=== PATIENT | female | born 1975 | race Caucasian/White ===

== ENCOUNTER 2022-06-18 13:57 | Observation (INO) | payer MEDICAID, SELFPAY ==
[2022-06-18 13:58] VITALS: BP 175/107; PULSE 72; RESP 15; TEMP 36.2; O2SAT 98; BMI 18.9
--- NOTE | 2022-06-18 14:55 | EDS_ITS ---
HPI History of Present Illness Chief Complaint: Substance Abuse Informant: patient Narrative Narrative: 47-year-old female is requesting detox from opiates. She states that she has been using heroin or fentanyl for at least a month. She had previously detoxed and was clean. She states that she does not want to live this lifestyle anymore. She notes pain along the left mandible and into her jaw with some swelling noting that she has sudden severe decayed teeth. Patient is very vague in her answers. She denies any pending legal issues PFSH PFS Medical History Aggression Asthma Bipolar 1 disorder Diarrhea GERD (gastroesophageal reflux disease) Hypertension Opiate addiction Pancreatitis Smoker Home Medications albuterol sulfate 90 mcg/actuation aerosol inhaler (ProAir HFA) 2 puff inhalation PRN PRN sob 06/18/22 [History Last Taken 06/18/22] atenolol 25 mg tablet 25 mg PO DAILY bp 06/18/22 [History Last Taken 06/18/22] buprenorphine HCl 8 mg sublingual tablet 8 mg sublingual BID Check with primary doctor 06/18/22 [History Last Taken 06/16/22] carbamazepine 100 mg/5 mL oral suspension 100 mg PO BID mood 06/18/22 [History Last Taken 06/18/22] fluticasone fur. 200 mcg-umeclid 62.5 mcg-vilant 25 mcg inhalat.powder (Trelegy Ellipta) 1 inh inhalation BID SOB 06/18/22 [History Last Taken 06/18/22] ipratropium 0.5 mg-albuterol 3 mg (2.5 mg base)/3 mL nebulization soln 3 ml inhalation Q4H PRN PRN sob 06/18/22 [History Last Taken 06/17/22] tcaoql-[id number]-albijun 24,000-76,000-120,000 unit capsule,delayed rel (Creon) 3 cap PO TID stomach 06/18/22 [History Last Taken 06/17/22] lisinopril 10 mg-hydrochlorothiazide 12.5 mg tablet 1 tab PO DAILY bp 06/18/22 [History Last Taken 06/18/22] loperamide 2 mg capsule 2 mg PO TID diarrhea 06/18/22 [History Last Taken 06/18/22] meloxicam 15 mg tablet 15 mg PO DAILY pain 06/18/22 [History Last Taken 06/17/22] omeprazole 20 mg capsule,delayed release 20 mg PO DAILY gerd 06/18/22 [History Last Taken 06/18/22] ondansetron 8 mg disintegrating tablet 8 mg translingual Q8H PRN PRN Nausea 06/18/22 [History Last Taken 06/18/22] risperidone 0.5 mg tablet 0.5 mg PO QHS mood 06/18/22 [History Last Taken 06/17/22] Allergy/AdvReac Type Severity Reaction Status Date / Time codeine Allergy Anaphylaxis Verified 06/18/22 14:01 Penicillins [PCN] Allergy Anaphylaxis Verified 06/18/22 13:58 Sulfa (Sulfonamide Allergy PT UNSURE Verified 06/18/22 13:58 Antibiotics) OF REACTION Family History Other Hx of appendicitis Social History (Updated 06/18/22 @ 14:[address] Rosalino Dash DO) Smoking Status: Current every day smoker tobacco type: cigarettes substance use type: opiates EXAM Physical Exam Const Vital Signs: 06/18/22 13:58 Temperature 97.2 F L Temperature Source Temporal Pulse Rate 72 Respiratory Rate 15 Blood Pressure 175/107 H Blood Pressure Mean 129 Pulse Ox 98 Oxygen Delivery Method Room Air Positive well nourished and well developed General Appearance ED: well developed HEENT Reports normocephalic, head/scalp atraumatic and moist mucous membranes Eyes PERRL and EOMs intact bilaterally Neck no lymphadenopathy, supple and no JVD Resp normal respiratory effort and clear to auscultation bilaterally Cardio regular rate, regular rhythm and no murmurs GI normal to inspection, nondistended, normoactive bowel sounds and non-tender Palpation: soft Back/Spine no CVA tenderness and normal ROM Extremity normal to inspection General Extremety ED: Negative for edema General Extremity: Negative for edema Neuro oriented x3 and CN's II-XII intact bilaterally Sensorium / Orientation: alert Motor Exam: strength 5/5 throughout Psych mental status grossly normal Mood & Affect: tearful; Negative for depressed Skin no rashes or lesions noted and no wounds MDM MDM MDM Narrative Medical decision making narrative: Medical screening labs will be obtained and I will speak with the hospitalist regarding admission. Lab Data Attestation: I reviewed the patient's lab results. Labs: Laboratory Results - last 24 hr 06/18/22 06/18/22 15:00 15:00 WBC Cancelled Corrected WBC Cancelled RBC Cancelled Hgb Cancelled Hct Cancelled MCV Cancelled MCH Cancelled MCHC Cancelled RDW Std Deviation Cancelled RDW Coeff of Lux Cancelled Plt Count Cancelled MPV Cancelled Immature Gran % (Auto) Cancelled Neut % (Auto) Cancelled Lymph % (Auto) Cancelled [place] % (Auto) Cancelled Eos % (Auto) Cancelled Baso % (Auto) Cancelled Absolute Neuts (auto) Cancelled Absolute Lymphs (auto) Cancelled Total Counted Cancelled Neutrophils % (Manual) Cancelled Band Neutrophils % Cancelled Lymphocytes % (Manual) Cancelled Monocytes % (Manual) Cancelled Eosinophils % (Manual) Cancelled Basophils % (Manual) Cancelled Metamyelocytes % Cancelled Myelocytes % Cancelled Promyelocytes % Cancelled Blast Cells % Cancelled Plasma Cell % (Manual) Cancelled Other Cells % Cancelled Nucleated RBC % Cancelled Nucleated RBCs/100 WBC Cancelled Differential Comment Cancelled Diff Path Review Cancelled Hypersegmented Neuts Cancelled Atypical Lymphocytes Cancelled Reactive Lymphocytes Cancelled Smudge Cells Cancelled Toxic Granulation Cancelled Toxic Vacuolation Cancelled Dohle Bodies Cancelled Sirisha Rods Cancelled Platelet Estimate Cancelled Plt Morphology Comment Cancelled RBC Morphology Cancelled Polychromasia Cancelled Hypochromasia Cancelled Poikilocytosis Cancelled Basophilic Stippling Cancelled Anisocytosis Cancelled Microcytosis Cancelled Macrocytosis Cancelled Spherocytes Cancelled Sickle Cells Cancelled Target Cells Cancelled Tear Drop Cells Cancelled Ovalocytes Cancelled Stomatocytes Cancelled Gupta-[place] Bodies Cancelled [place] Cells Cancelled Bite Cells Cancelled Crenated Cell Cancelled Acanthocytes (Spur) Cancelled Rouleaux Cancelled Schistocytes Cancelled Estim Creat Clear Calc DOT COMPLIANCE SPECIALIST Globulin DOT COMPLIANCE SPECIALIST Albumin/Globulin Ratio DOT COMPLIANCE SPECIALIST Discharge Plan Dx/Rx/DC Orders Clinical Impression: Opiate withdrawal Disposition Disposition: Acute Care Hospital [facility]
[2022-06-18 15:15] VITALS: BP 170/101; PULSE 72; RESP 15; TEMP 36.2; O2SAT 98
[2022-06-18] MEDS: Clindamycin HCl 150 MG Capsule 300 MG PO ×3 (15:23→20:58)
[2022-06-18 15:25] VITALS: BMI 18.0
[2022-06-18 15:45] LABS: Alcohol, Blood (Medical)-Serum < 3.0 mg/dL; Internal QC Validated? YES +Cl - CLEAR BKGD; Pregnancy, Serum, hCG Quali. NEGATIVE Negative
[2022-06-18 16:23] LABS: Absolute Lymphocyte Count 2.21 X10^3/uL (0.83-4.51); Absolute Neutrophil Count 9.4 X10^3/uL (2.0-7.7); Basophil# 0.03 X10^3/uL; Basophil% 0.2 % (0-1); Eosinophils% 0.8 % (0-5); Hematocrit 46.2 % (37-47); Hemoglobin 14.9 g/dL (12.0-15.0); Lymphocyte # 2.21 X10^3/ul (0.83-4.51); Lymphocyte % 17.6 % (19-41); Mean Corp Hgb Conc 32.3 g/dL (32-36); Mean Corpuscular Hgb 29.7 pg (27.0-32.0); Mean Platelet Vol. 10.8 fl (6.2-12.0); Monocyte# 0.84 X10^3/uL; Monocyte% 6.7 % (0-10); NRBC Flagged by Analyzer 0 % (0-5); Neutrophil # 9.37 X10^3/uL (2.7-7.7); Neutrophil % 74.5 % (47-70); POSITIVE COUNT YES; Platelet Count 219 K/mm3 (150-450); RBC Distribution Width CV 12.7 % (11.6-14.6); RBC Distribution Width SD 42.7 fl (35.1-43.9); Red Blood Count 5.02 M/mm3 (4.2-5.4); White Blood Count 12.6 K/mm3 (4.4-11.0)
--- NOTE | 2022-06-18 16:35 | HP.PCM.HOS_ITS ---
HPI - General General Date of Admission: 06/18/22 Date of Service: 06/18/22 Chief Complaint: acute opioid withdrawal HPI Narrative MARIELENA TAMAYO, is a 47 F with a past medical history as outlined who was admitted through the ED for acute opioid withdrawal. Patient had been using heroin and fentanyl for at least a month and came in saying that she did not want to be using drugs anymore. She had previously detoxed previously during another admission for a lung problem. SHe has been clean for about 9 months until she relapsed a month ago. She denied any tremors, palpitations, increased sweating or abdominal pain. She also complained of pain along her left mandible radiating into her jaw with some swelling and admitted to having several decayed teeth. She said she saw a dentist and was asked to see an oral surgeon, but she hasnt done so yet. Vitals in the ED were blood pressure 170/101 with pulse rate of 72 respiratory rate of 15. She was saturating at 98% on room air. CBC and BMP were largely unremarkable apart from wbc of 12.6 and glucose of 138. Urine tox was positive for opiates, cocaine and cannabinoids and serum alcohol level was less than 3. She is being admitted to be managed for acute opioid withdrawal and infected dental caries [facility] Medical History Aggression Asthma Bipolar 1 disorder Diarrhea GERD (gastroesophageal reflux disease) Hypertension Opiate addiction Pancreatitis Smoker Home Medications albuterol sulfate 90 mcg/actuation aerosol inhaler (ProAir HFA) 2 puff inhalation PRN PRN sob 06/18/22 [History Last Taken 06/18/22] atenolol 25 mg tablet 25 mg PO DAILY bp 06/18/22 [History Last Taken 06/18/22] buprenorphine HCl 8 mg sublingual tablet 8 mg sublingual BID Check with primary doctor 06/18/22 [History Last Taken 06/16/22] carbamazepine 100 mg/5 mL oral suspension 100 mg PO BID mood 06/18/22 [History Last Taken 06/18/22] fluticasone fur. 200 mcg-umeclid 62.5 mcg-vilant 25 mcg inhalat.powder (Trelegy Ellipta) 1 inh inhalation BID SOB 06/18/22 [History Last Taken 06/18/22] ipratropium 0.5 mg-albuterol 3 mg (2.5 mg base)/3 mL nebulization soln 3 ml inhalation Q4H PRN PRN sob 06/18/22 [History Last Taken 06/17/22] jnobls-vuwsddec-sjjhjem 24,000-76,000-120,000 unit capsule,delayed rel (Creon) 3 cap PO TID stomach 06/18/22 [History Last Taken 06/17/22] lisinopril 10 mg-hydrochlorothiazide 12.5 mg tablet 1 tab PO DAILY bp 06/18/22 [History Last Taken 06/18/22] loperamide 2 mg capsule 2 mg PO TID diarrhea 06/18/22 [History Last Taken 06/18/22] meloxicam 15 mg tablet 15 mg PO DAILY pain 06/18/22 [History Last Taken 06/17/22] omeprazole 20 mg capsule,delayed release 20 mg PO DAILY gerd 06/18/22 [History Last Taken 06/18/22] ondansetron 8 mg disintegrating tablet 8 mg translingual Q8H PRN PRN Nausea 06/18/22 [History Last Taken 06/18/22] risperidone 0.5 mg tablet 0.5 mg PO QHS mood 06/18/22 [History Last Taken 06/17/22] Allergy/AdvReac Type Severity Reaction Status Date / Time codeine Allergy Anaphylaxis Verified 06/18/22 14:01 Penicillins [PCN] Allergy Anaphylaxis Verified 06/18/22 13:58 Sulfa (Sulfonamide Allergy PT UNSURE Verified 06/18/22 13:58 Antibiotics) OF REACTION Family History Other Hx of appendicitis Social History (Updated 06/18/22 @ 14:[address] Rosalino Dash DO) Smoking Status: Current every day smoker tobacco type: cigarettes substance use type: opiates ROS Constitutional Constitutional: Denies anorexia, chills, fatigue, fever(s), malaise or weakness Eyes Eyes: Denies change in vision ENT HEENT: Reports other Details: toothache and jaw pain ; Denies dysphagia Cardiovascular Cardiovascular: Denies chest pain, dyspnea on exertion, edema, lightheadedness, orthopnea, palpitations, paroxysmal nocturnal dyspnea, rapid heart rate or syncope Respiratory/Chest Respiratory/Chest: Denies cough, dyspnea, shortness of breath at rest or shortness of breath with exertion Gastrointestinal Gastrointestinal: Denies abdominal pain, constipation, diarrhea, nausea or vomi ting Genitourinary Genitourinary: Denies burning urination or dysuria Musculoskeletal Musculoskeletal: Denies arthralgias or joint pain Psychiatric Psychiatric: Denies anxiety or depression Endocrine Endocrinology: Denies change in body appearance Vital Signs Vital Signs Vital Signs: 06/18/22 13:58 06/18/22 15:15 Temperature 97.2 F L 97.2 F L Temperature Source Temporal Temporal Pulse Rate 72 72 Respiratory Rate 15 15 Blood Pressure 175/107 H 170/101 H Blood Pressure Mean 129 124 Pulse Ox 98 98 Oxygen Delivery Method Room Air Room Air Weight Weight: 135 lb 12.876 oz Body Mass Index (BMI) 18.9 Physical Exam Const alert, oriented x3 and no apparent distress General Appearance: cooperative HEENT normocephalic, head/scalp atraumatic, hearing grossly normal bilaterally and moist oral mucous membranes HEENT Narrative: very poor dental hygiene, with extensive dental caries Mouth: oral and palatal mucosa normal Eyes PERRL, EOMs intact bilaterally and conjunctivae normal Neck no lymphadenopathy and supple Resp normal respiratory effort, no retractions, no use of accessory muscles and clear to auscultation bilaterally Cardio regular rate, regular rhythm, S1 normal heart sound, S2 normal heart sound and no murmurs GI normal to inspection, nondistended, normoactive bowel sounds, soft to palpation, non-tender and non-distended Extremity normal to inspection, full ROM and no clubbing, cyanosis or edema Neuro oriented x3, CN's II-XII intact bilaterally, moves all extremities and no focal motor deficits Sensorium / Orientation: awake and alert Motor Exam: strength 5/5 throughout Psych affect normal Results Lab / Micro Data Result Diagrams: 06/18/22 16:07 06/18/22 15:00 Labs: Laboratory Results - last 24 hr 06/18/22 15:00: WBC Cancelled, Corrected WBC Cancelled, RBC Cancelled, Hgb Cancelled, Hct Cancelled, MCV Cancelled, MCH Cancelled, MCHC Cancelled, RDW Std Deviation Cancelled, RDW Coeff of Lux Cancelled, Plt Count Cancelled, MPV Cancelled, Immature Gran % (Auto) Cancelled, Neut % (Auto) Cancelled, Lymph % (Auto) Cancelled, [place] % (Auto) Cancelled, Eos % (Auto) Cancelled, Baso % (Auto) Cancelled, Absolute Neuts (auto) Cancelled, Absolute Lymphs (auto) Cancelled, Total Counted Cancelled, Neutrophils % (Manual) Cancelled, Band Neutrophils % Cancelled, Lymphocytes % (Manual) Cancelled, Monocytes % (Manual) Cancelled, Eosinophils % (Manual) Cancelled, Basophils % (Manual) Cancelled, Metamyelocytes % Cancelled, Myelocytes % Cancelled, Promyelocytes % Cancelled, Blast Cells % Cancelled, Plasma Cell % (Manual) Cancelled, Other Cells % Cancelled, Nucleated RBC % Cancelled, Nucleated RBCs/100 WBC Cancelled, Differential Comment Cancelled, Diff Path Review Cancelled, Hypersegmented Neuts Cancelled, Atypical Lymphocytes Cancelled, Reactive Lymphocytes Cancelled, Smudge Cells Cancelled, Toxic Granulation Cancelled, Toxic Vacuolation Cancelled, Dohle Bodies Cancelled, Sirisha Rods Cancelled, Platelet Estimate Cancelled, Plt Morphology Comment Cancelled, RBC Morphology Cancelled, Polychromasia Cancelled, Hypochromasia Cancelled, Poikilocytosis Cancelled, Basophilic Stippling Cancelled, Anisocytosis Cancelled, Microcytosis Cancelled, Macrocytosis Cancel led, Spherocytes Cancelled, Sickle Cells Cancelled, Target Cells Cancelled, Tear Drop Cells Cancelled, Ovalocytes Cancelled, Stomatocytes Cancelled, Gupta- [place] Bodies Cancelled, [place] Cells Cancelled, Bite Cells Cancelled, Crenated Cell Cancelled, Acanthocytes (Spur) Cancelled, Rouleaux Cancelled, Schistocytes Cancelled 06/18/22 15:00: Serum , Qual NEGATIVE 06/18/22 15:00: Estim Creat Clear Calc BUN PANNER, Globulin BUN PANNER, Albumin/Globulin Ratio BUN PANNER 06/18/22 15:00: Ethyl Alcohol < 3.0 Assessment & Plan Assessment/Plan (1) Opiate withdrawal: (2) Infected dental caries: PLAN: Plan #Acute opioid withdrawal * Admit to MedSurg * Urine tox pending. Has been through detox before. * Started on acute opioid withdrawal protocol with buprenorphine * Adjunctive meds for symptomatic relief. Monitor CINA score. * #Infected dental caries * patient complaining of right jaw pain and admits to dental caries * started on IV clindamycin, will continue * to follow up with dentist on outpatient basis for root canal as needed * #Hypertension: * poorly controlled. BP is elevated. * On lisinopril hydrochlorothiazide. * Also on atenolol. * #COPD: On Trelegy. Breathing treatments bronchodilators #Chronic pancreatitis: On Creon #Nicotine dependence: counseled to quit smoking. NIcotine patch 21mg daily DVT prophylaxis: Low risk. Encouraged to ambulate. Charges/Coding Visit Charges Inpatient E&M: 82188 Init Hosp L3
--- NOTE | 2022-06-18 16:36 | CM.ED ---
SW Note SW called [facility] Addiction Therapist and advised that patient presented to the ED for opiate withdrawl and patient is being admitted to [facility] program. Kirti ESCOBEDO
[2022-06-18 16:56] LABS: Differential Indicated SCAN CRITERIA MET
[2022-06-18 17:07] LABS: ALB/GLOB Ratio 1.2 RATIO (0.9-2.4); AST(SGOT) 33 U/L (15-37); Alanine Aminotransfer ALT/SGPT 39 U/L (13-56); Albumin, Serum 4.3 g/dL (3.2-5.0); Alkaline Phosphatase 77 U/L (45-117); Anion Gap 11 (5-15); BUN 15 mg/dL (7-18); BUN/Creat Ratio 20.1 RATIO (10-20); Calcium,Total 9.7 mg/dL (8.5-10.1); Chloride 102 mmol/L (98-107); Creatinine, Serum 0.75 mg/dL (0.55-1.02); EST Glomerular Filtration Rate 87 mL/min (>60); Est Glom Filt Rate - Afr Amer 106 mL/min (>60); Estimated Creatinine Clearance 86.41 ml/min; Globulin 3.5 g/dL (2.2-4.2); Glucose 138 mg/dL (74-106); Potassium 4.1 mmol/L (3.5-5.1); Protein, Total 7.8 g/dL (6.4-8.2); Sodium Level 140 mmol/L (136-145)
[2022-06-18] MEDS: cloNIDine HCl 0.1 MG Tablet PO (17:27)
[2022-06-18] MEDS: Gabapentin 300 MG Capsule PO (17:27)
[2022-06-18] MEDS: Buprenorphine HCl 2 MG TAB.SUBL SL (17:27)
[2022-06-18] MEDS: Methocarbamol 750 MG Tablet 1500 MG PO (17:27)
[2022-06-18] MEDS: Dicyclomine 10 MG Capsule 20 MG PO (17:27)
[2022-06-18 17:43] LABS: Differential Comment SCANNED
[2022-06-18 18:11] LABS: Amphetamine Urine VISTA NEGATIVE (<1000 ng/mL); Barbiturate Urine VISTA NEGATIVE (< 200 ng/mL); Benzodiazepine Urine VISTA NEGATIVE (< 200 ng/mL); Cocaine Urine VISTA POSITIVE (< 300 ng/mL); Ecstacy Urine VISTA NEGATIVE (< 500 ng/mL); Methadone Urine VISTA NEGATIVE (< 300 ng/mL); PCP Urine VISTA NEGATIVE (< 25 ng/mL); THC Urine VISTA POSITIVE (< 50 ng/mL); Vista UDS pH Range 7
[2022-06-18] MEDS: Creon 24,000 unit DR Capsule 3 CAP PO (20:58)
[2022-06-18] MEDS: traZODone 100 MG Tablet PO (20:58)
[2022-06-18] MEDS: hydrOXYzine PAM 25 MG Capsule 50 MG PO (20:58)
[2022-06-18] MEDS: Loperamide 2 MG Capsule PO (20:58)
[2022-06-18] MEDS: carBAMazepine 200 MG Tablet 100 MG PO (20:59)
[2022-06-18] MEDS: RisperiDONE 0.5 MG Tablet PO (20:59)
[2022-06-18 22:00] VITALS: BP 139/77; PULSE 94; RESP 16; TEMP 36.5; O2SAT 97
[2022-06-19] VITALS (9 sets, daily range): BP systolic 91–132; BP diastolic 52–81; PULSE 52–89; RESP 16–18; TEMP 36.4–36.9; O2SAT 95–100
[2022-06-19] MEDS: Buprenorphine HCl 2 MG TAB.SUBL SL ×3 (00:33→16:59)
[2022-06-19] MEDS: Loperamide 2 MG Capsule PO ×3 (05:24→21:35)
[2022-06-19] MEDS: Gabapentin 300 MG Capsule PO ×2 (05:24→14:35)
[2022-06-19] MEDS: Methocarbamol 750 MG Tablet 1500 MG PO ×2 (05:24→14:35)
[2022-06-19] MEDS: Budesonide Respules 0.5 MG/2 ML AMPUL.NEB. INHALATION ×2 (07:14→19:07)
[2022-06-19] MEDS: Ipratropium/Albuterol Sulfate 3 ML AMPUL.NEB INHALATION ×2 (07:14→19:07)
--- NOTE | 2022-06-19 07:34 | PN.HOSP_ITS ---
Subjective Subjective Patient is a 47-year-old female with opioid dependence admitted with acute opioid withdrawal Objective Data Objective Data Vital Signs: Vital Signs Temp Pulse Resp BP Pulse Ox O2 Del Method 97.6 F L 57 L 16 132/81 H 100 Room Air 06/19/22 05:00 06/19/22 07:15 06/19/22 07:15 06/19/22 05:00 06/19/22 05:00 06/19/22 05:00 Oxygen Delivery Method Room Air Weight: 60.328 kg Body Mass Index (BMI) 18.0 Lab / Micro Data Result Diagrams: 06/18/22 16:07 06/18/22 15:00 Labs: Laboratory Results - last 24 hr 06/18/22 15:00: WBC Cancelled, Corrected WBC Cancelled, RBC Cancelled, Hgb Cancelled, Hct Cancelled, MCV Cancelled, MCH Cancelled, MCHC Cancelled, RDW Std Deviation Cancelled, RDW Coeff of Lux Cancelled, Plt Count Cancelled, MPV Cancelled, Immature Gran % (Auto) Cancelled, Neut % (Auto) Cancelled, Lymph % (Auto) Cancelled, [place] % (Auto) Cancelled, Eos % (Auto) Cancelled, Baso % (Auto) Cancelled, Absolute Neuts (auto) Cancelled, Absolute Lymphs (auto) Cancelled, Total Counted Cancelled, Neutrophils % (Manual) Cancelled, Band Neutrophils % Cancelled, Lymphocytes % (Manual) Cancelled, Monocytes % (Manual) Cancelled, Eosinophils % (Manual) Cancelled, Basophils % (Manual) Cancelled, Metamyelocytes % Cancelled, Myelocytes % Cancelled, Promyelocytes % Cancelled, Blast Cells % Cancelled, Plasma Cell % (Manual) Cancelled, Other Cells % Cancelled, Nucleated RBC % Cancelled, Nucleated RBCs/100 WBC Cancelled, Differential Comment Cancelled, Diff Path Review Cancelled, Hypersegmented Neuts Cancelled, Atypical Lymphocytes Cancelled, Reactive Lymphocytes Cancelled, Smudge Cells Cancelled, Toxic Granulation Cancelled, Toxic Vacuolation Cancelled, Dohle Bodies Cancelled, Sirisha Rods Cancelled, Platelet Estimate Cancelled, Plt Morphology Comment Cancelled, RBC Morphology Cancelled, Polychromasia Cancelled, Hypochromasia Cancelled, Poikilocytosis Cancelled, Basophilic Stippling Cancelled, Anisocytosis Cancelled, Microcytosis Cancelled, Macrocytosis Cancelled, Spherocytes Cancelled, Sickle Cells Cancelled, Target Cells Cancelled, Tear Drop Cells Cancelled, Ovalocytes Cancelled, Stomatocytes Cancelled, Gupta-[place] Bodies Cancelled, [place] Cells Cancelled, Bite Cells Cancelled, Crenated Cell Cancelled, Acanthocytes (Spur) Cancelled, Rouleaux Cancelled, Schistocytes Cancelled 06/18/22 15:00: Serum , Qual NEGATIVE 06/18/22 15:00: Sodium 140, Potassium 4.1, Chloride 102, Carbon Dioxide 27.0, Anion Gap 11, BUN 15, Creatinine 0.75, Estim Creat Clear Calc 86.41, Est GFR (MDRD) Af Amer 106, Est GFR (MDRD) Non-Af 87, BUN/Creatinine Ratio 20.1 H, Glucose 138 H, Calcium 9.7, Total Bilirubin 0.50, AST 33, ALT 39, Alkaline Phosphatase 77, Total Protein 7.8, Albumin 4.3, Globulin 3.5, Albumin/Globulin Ratio 1.2 06/18/22 15:00: Ethyl Alcohol < 3.0 06/18/22 16:07: WBC 12.6 H, RBC 5.02, Hgb 14.9, Hct 46.2, MCV 92.0, MCH 29.7, MCHC 32.3, RDW Std Deviation 42.7, RDW Coeff of Lux 12.7, Plt Count 219, MPV 10.8, Immature Gran % (Auto) 0.200, Neut % (Auto) 74.5 H, Lymph % (Auto) 17.6 L, [place] % (Auto) 6.7, Eos % (Auto) 0.8, Baso % (Auto) 0.2, Absolute Neuts (auto) 9.4 H, Absolute Lymphs (auto) 2.21, Nucleated RBC % 0, Differential Comment SCANNED 06/18/22 17:15: Urine Opiates Screen POSITIVE H, Urine Methadone Screen NEGATIVE, Ur Barbiturates Screen NEGATIVE, Ur Phencyclidine Scrn NEGATIVE, Ur Amphetamines Screen NEGATIVE, MDMA (Ecstasy) Screen NEGATIVE, U Benzodiazepines Scrn NEGATIVE, Urine Cocaine Screen POSITIVE H, U Cannabinoids Screen POSITIVE H , Ur Drug Screen Comment Physical Exam Narrative GENERAL: cooperative HEENT: Atraumatic; normocephalic EYES; Anicteric, Normal Conjunctiva NECK; supple, normal thyroid, RESPIRATORY: Diminished to auscultation CARDIOVASCULAR: Regular S1 S2, GI: soft, normoactive bowel sounds, : No Renal angle tenderness; EXTREMITIES: No edema, no clubbing, MUSCULOSKELETAL: no muscle wasting NEURO: Awake; no lateralizing signs. SKIN: No Rash PSYCH; Flat affect Assessment & Plan Assessment/Plan (1) Opiate withdrawal: (2) Infected dental caries: PLAN: Plan Patient is a 47-year-old female with opioid dependence admitted with acute opioid withdrawal 1. Acute opiate withdrawal -patient has been admitted to regular nursing floor managed with buprenorphine taper in addition to adjunctive medications for symptom management 2. Infected dental carry ? Patient treated with clindamycin with plans for patient to follow-up with primary dentist once discharged 3. Essential hypertension ? Patient is on lisinopril, atenolol and hydrochlorothiazide blood pressure control not optimal did continue with home meds with plans to adjust doses if needed 4. COPD ? Did continue sinew with patient bronchodilator treatment 5. Chronic pancreatitis ? Patient is on Creon 6. Tobacco dependence - Counseled on cessation, offered nicotine patch for tobacco cravings 7. DVT prophylaxis Low risk did encourage early ambulation Charges/Coding Visit Charges Inpatient E&M: 39195 Subs Hosp L2
[2022-06-19] MEDS: Meloxicam 15 MG Tablet PO (08:50)
[2022-06-19] MEDS: Pantoprazole Sodium 20 MG Tablet PO (08:50)
[2022-06-19] MEDS: Lisinopril 10 MG Tablet PO (08:50)
[2022-06-19] MEDS: hydroCHLOROthiazide 12.5mg 12.5 MG PO (08:50)
[2022-06-19] MEDS: Dicyclomine 10 MG Capsule 20 MG PO ×2 (08:51→14:35)
[2022-06-19] MEDS: hydrOXYzine PAM 25 MG Capsule 50 MG PO ×2 (08:51→18:03)
[2022-06-19] MEDS: Atenolol 25 MG Tablet PO (08:51)
[2022-06-19] MEDS: cloNIDine HCl 0.1 MG Tablet PO (08:51)
[2022-06-19] MEDS: carBAMazepine 200 MG Tablet 100 MG PO ×2 (08:52→21:33)
[2022-06-19] MEDS: Clindamycin HCl 150 MG Capsule 300 MG PO ×4 (08:52→21:35)
[2022-06-19] MEDS: Creon 24,000 unit DR Capsule 3 CAP PO ×3 (08:52→17:00)
--- NOTE | 2022-06-19 11:18 | ADDICTION ---
This television writer met with PT to conduct ASAM, MSE, AUDIT, DUDIT assessments and to plan for d/c. PT A+Ox4 and participated actively. All assessments completed and placed in PT's chart. PT plans to f/u with [facility] for follow-up outpatient treatment services. PT did not indicate a need for transportation post d/c from [facility].
[2022-06-19] MEDS: Ondansetron 8 MG Tablet PO (14:35)
[2022-06-19] MEDS: Ensure Plus High Protein 120 ML LIQUID PO (17:02)
[2022-06-19] MEDS: RisperiDONE 0.5 MG Tablet PO (21:34)
[2022-06-20 01:45] VITALS: BP 115/65; PULSE 52; RESP 18; TEMP 36.6; O2SAT 99
[2022-06-20] MEDS: Buprenorphine HCl 2 MG TAB.SUBL SL ×3 (01:47→17:04)
[2022-06-20 05:58] VITALS: BP 102/67; PULSE 55; RESP 18; TEMP 36.7; O2SAT 100
[2022-06-20] MEDS: Loperamide 2 MG Capsule PO ×3 (06:01→21:10)
--- NOTE | 2022-06-20 07:27 | PCM.PN.HOSP ---
Subjective Subjective Patient seen still complaining of abdominal cramps. We will continue with current treatment regimen with the Subutex taper Objective Data Objective Data Vital Signs: Vital Signs Temp Pulse Resp BP Pulse Ox O2 Del Method 98.1 F 55 L 18 102/67 100 Room Air 06/20/22 05:58 06/20/22 05:58 06/20/22 05:58 06/20/22 05:58 06/20/22 05:58 06/20/22 05:58 Oxygen Delivery Method Room Air Weight: 60.328 kg Body Mass Index (BMI) 18.0 Medical Nutrition Assessment Dietitian: Malnutrition Criteria Met Start: 06/19/22 12:17 Freq: Status: Active Protocol: Document 06/19/22 12:18 RMA (Rec: 06/19/22 12:18 RMA [id number]) Nutrition Malnutrition Evidence of Malnutrition Exists Yes Malnutrition (severe): Chronic,Social/Behavioral/ Environmental Evidenced By Suboptimal Energy Intake ( Severe),Weight Loss (Severe), Physical Changes (Severe) Clinical Problem Chronic Disease or Condition Related Malnutrition Etiology Severe protein-calorie malnutrition in the context of social circumstance/chronic drug abuse related to inadequate oral intake Signs/Symptoms as evidenced by 12% weight loss x past 6-12 months, BMI 18.0, oral intake meeting less than 50% estimated nutrition needs x past 1-3 months, NFPE exhibits severe muscle/fat wasting in the face, clavicle, arms and legs Status Active Problem Recommendation Dietitian Recommendations/Changes Continue cardiac diet as ordered due to chronic pancreatitis/HTN. Will add 120ml ensure plus high protein TID w/ medpass. Will add 120 ml ensure clear TID w/ meals. Will try magic cup BID w/ lunch and dinner for tolerance . Lab / Micro Data Result Diagrams: 06/18/22 16:07 06/18/22 15:00 Physical Exam Narrative GENERAL: cooperative HEENT: Atraumatic; normocephalic EYES; Anicteric, Normal Conjunctiva NECK; supple, normal thyroid, RESPIRATORY: Diminished to auscultation CARDIOVASCULAR: Regular S1 S2, GI: soft, normoactive bowel sounds, : No Renal angle tenderness; EXTREMITIES: No edema, no clubbing, MUSCULOSKELETAL: no muscle wasting NEURO: Awake; no lateralizing signs. SKIN: No Rash PSYCH; Flat affect Assessment & Plan Assessment/Plan (1) Opiate withdrawal: (2) Infected dental caries: PLAN: Plan Patient is a 47-year-old female with opioid dependence admitted with acute opioid withdrawal 1. Acute opiate withdrawal -patient has been admitted to regular nursing floor managed with buprenorphine taper in addition to adjunctive medications for symptom management ? 06/20/2021 Patient seen still complaining of abdominal cramps. We will continue with current treatment regimen with the Subutex taper 2. Infected dental caries ? Patient treated with clindamycin with plans for patient to follow-up with primary dentist once discharged 3. Essential hypertension ? Patient is on lisinopril, atenolol and hydrochlorothiazide blood pressure control not optimal did continue with home meds with plans to adjust doses if needed 4. COPD ? Did continue sinew with patient bronchodilator treatment 5. Chronic pancreatitis ? Patient is on Creon 6. Tobacco dependence - Counseled on cessation, offered nicotine patch for tobacco cravings 7. DVT prophylaxis Low risk did encourage early ambulation Charges/Coding Visit Charges Inpatient E&M: 94394 Subs Hosp L2
[2022-06-20] MEDS: Creon 24,000 unit DR Capsule 3 CAP PO ×3 (09:22→16:57)
[2022-06-20] MEDS: Clindamycin HCl 150 MG Capsule 300 MG PO ×4 (09:23→21:10)
[2022-06-20] MEDS: Meloxicam 15 MG Tablet PO (09:24)
[2022-06-20] MEDS: Pantoprazole Sodium 20 MG Tablet PO (09:25)
[2022-06-20] MEDS: carBAMazepine 200 MG Tablet 100 MG PO ×2 (09:25→21:10)
[2022-06-20 09:37] VITALS: BP 108/65; PULSE 56; RESP 18; TEMP 36.5; O2SAT 97
[2022-06-20] MEDS: Dicyclomine 10 MG Capsule 20 MG PO ×2 (11:43→18:06)
[2022-06-20] MEDS: Gabapentin 300 MG Capsule PO ×2 (11:44→21:09)
[2022-06-20] MEDS: Methocarbamol 750 MG Tablet 1500 MG PO ×2 (11:44→18:05)
[2022-06-20] MEDS: Ondansetron 8 MG Tablet PO (11:44)
[2022-06-20 16:03] VITALS: BP 104/57; PULSE 65; RESP 16; TEMP 36.4; O2SAT 98
[2022-06-20] MEDS: hydrOXYzine PAM 25 MG Capsule 50 MG PO (16:54)
[2022-06-20] MEDS: Ensure Plus High Protein 120 ML LIQUID PO (16:56)
[2022-06-20 21:07] VITALS: BP 109/67; PULSE 63; RESP 18; TEMP 37; O2SAT 97
[2022-06-20] MEDS: traZODone 100 MG Tablet PO (21:09)
[2022-06-20] MEDS: RisperiDONE 0.5 MG Tablet PO (21:10)
[2022-06-21 05:00] VITALS: BP 124/77; PULSE 68; RESP 16; TEMP 36.8; O2SAT 97
[2022-06-21] MEDS: Buprenorphine HCl 2 MG TAB.SUBL SL (05:25)
[2022-06-21] MEDS: Loperamide 2 MG Capsule PO (05:25)
--- NOTE | 2022-06-21 07:19 | PN.HOSP_ITS ---
Subjective Subjective Patient seen admit to significant improvement in her overall condition patient will be assessed for discharge Objective Data Objective Data Vital Signs: Vital Signs Temp Pulse Resp BP Pulse Ox O2 Del Method 98.2 F 68 16 124/77 H 97 Room Air 06/21/22 05:00 06/21/22 05:00 06/21/22 05:00 06/21/22 05:00 06/21/22 05:00 06/21/22 05:00 Oxygen Delivery Method Room Air Weight: 60.328 kg Body Mass Index (BMI) 18.0 Medical Nutrition Assessment Dietitian: Malnutrition Criteria Met Start: 06/19/22 12:17 Freq: Status: Active Protocol: Document 06/19/22 12:18 RMA (Rec: 06/19/22 12:18 RMA [id number]) Nutrition Malnutrition Evidence of Malnutrition Exists Yes Malnutrition (severe): Chronic,Social/Behavioral/ Environmental Evidenced By Suboptimal Energy Intake ( Severe),Weight Loss (Severe), Physical Changes (Severe) Clinical Problem Chronic Disease or Condition Related Malnutrition Etiology Severe protein-calorie malnutrition in the context of social circumstance/chronic drug abuse related to inadequate oral intake Signs/Symptoms as evidenced by 12% weight loss x past 6-12 months, BMI 18.0, oral intake meeting less than 50% estimated nutrition needs x past 1-3 months, NFPE exhibits severe muscle/fat wasting in the face, clavicle, arms and legs Status Active Problem Recommendation Dietitian Recommendations/Changes Continue cardiac diet as ordered due to chronic pancreatitis/HTN. Will add 120ml ensure plus high protein TID w/ medpass. Will add 120 ml ensure clear TID w/ meals. Will try magic cup BID w/ lunch and dinner for tolerance . Lab / Micro Data Result Diagrams: 06/18/22 16:07 06/18/22 15:00 Physical Exam Narrative GENERAL: cooperative HEENT: Atraumatic; normocephalic EYES; Anicteric, Normal Conjunctiva NECK; supple, normal thyroid, RESPIRATORY: Diminished to auscultation CARDIOVASCULAR: Regular S1 S2, GI: soft, normoactive bowel sounds, : No Renal angle tenderness; EXTREMITIES: No edema, no clubbing, MUSCULOSKELETAL: no muscle wasting NEURO: Awake; no lateralizing signs. SKIN: No Rash PSYCH; Flat affect Assessment & Plan Assessment/Plan (1) Opiate withdrawal: (2) Infected dental caries: PLAN: Plan Patient is a 47-year-old female with opioid dependence admitted with acute opioid withdrawal 1. Acute opiate withdrawal -patient has been admitted to regular nursing floor managed with buprenorphine taper in addition to adjunctive medications for symptom management ? 06/20/2021 Patient seen still complaining of abdominal cramps. We will continue with current treatment regimen with the Subutex taper 2. Infected dental caries ? Patient treated with clindamycin with plans for patient to follow-up with primary dentist once discharged 3. Essential hypertension ? Patient is on lisinopril, atenolol and hydrochlorothiazide blood pressure control not optimal did continue with home meds with plans to adjust doses if needed 4. COPD ? Did continue sinew with patient bronchodilator treatment 5. Chronic pancreatitis ? Patient is on Creon 6. Tobacco dependence - Counseled on cessation, offered nicotine patch for tobacco cravings 7. DVT prophylaxis Low risk did encourage early ambulation 8. Severe protein -calorie malnutrition in the context of social circumstance/chronic drug abuse related to inadequate oral intake as evidenced by 12% weight loss x past 6-12 months, BMI 18.0, oral intake meeting less than 50% estimated nutrition needs x past 1-3 months, NFPE exhibits severe muscle/fat wasting in the face, clavicle, arms and legs, BMI 18. Continue cardiac diet as ordered due to chronic panc reatitis/HTN. Will add 120ml ensure plus high protein TID w/ medpass. Will add 120 ml ensure clear TID w/ meals. Will try magic cup BID w/ lunch and dinner for tolerance. Charges/Coding Visit Charges Inpatient E&M: 04741 Subs Hosp L2
[2022-06-21] MEDS: Creon 24,000 unit DR Capsule 3 CAP PO ×2 (08:04→11:55)
[2022-06-21] MEDS: Lisinopril 10 MG Tablet PO (08:04)
[2022-06-21] MEDS: Ensure Plus High Protein 120 ML LIQUID PO ×2 (08:04→11:55)
[2022-06-21] MEDS: Pantoprazole Sodium 20 MG Tablet PO (08:05)
[2022-06-21] MEDS: carBAMazepine 200 MG Tablet 100 MG PO (08:05)
[2022-06-21] MEDS: Meloxicam 15 MG Tablet PO (08:06)
[2022-06-21] MEDS: hydroCHLOROthiazide 12.5mg 12.5 MG PO (08:07)
[2022-06-21] MEDS: Atenolol 25 MG Tablet PO (08:07)
[2022-06-21] MEDS: Clindamycin HCl 150 MG Capsule 300 MG PO (08:08)
--- NOTE | 2022-06-21 08:19 | DS.PCM_ITS ---
Providers Date of Admission: 06/18/22 Date of Discharge: 06/21/22 Primary Care Physician: ABEL GRACE Reason For Visit: ACUTE OPIOID WITHDRAWAL Diagnosis Discharge Diagnosis (1) Opiate withdrawal: Status: Acute Code(s): F11.93 - Opioid use, unspecified with withdrawal (2) Infected dental caries: Status: Acute Code(s): K02.9 - Dental caries, unspecified; K04.7 - Periapical abscess without sinus Plan Patient is a 47-year-old female with opioid dependence admitted with acute opioid withdrawal 1. Acute opiate withdrawal -patient has been admitted to regular nursing floor managed with buprenorphine taper in addition to adjunctive medications for symptom management ? 06/20/2021 Patient seen still complaining of abdominal cramps. We will continue with current treatment regimen with the Subutex taper 2. Infected dental caries ? Patient treated with clindamycin with plans for patient to follow-up with [facility] dentist once discharged 3. Essential hypertension ? Patient is on lisinopril, atenolol and hydrochlorothiazide blood pressure control not optimal did continue with home meds with plans to adjust doses if needed 4. COPD ? Did continue sinew with patient bronchodilator treatment 5. Chronic pancreatitis ? Patient is on Creon 6. Tobacco dependence - Counseled on cessation, offered nicotine patch for tobacco cravings 7. DVT prophylaxis Low risk did encourage early ambulation 8. Severe protein -calorie malnutrition in the context of social circumstance/chronic drug abuse related to inadequate oral intake as evidenced by 12% weight loss x past 6-12 months, BMI 18.0, oral intake meeting less than 50% estimated nutrition needs x past 1-3 months, NFPE exhibits severe muscle/fat wasting in the face, clavicle, arms and legs, BMI 18. Continue cardiac diet as ordered due to chronic pa ncreatitis/HTN. Will add 120ml ensure plus high protein TID w/ medpass. Will add 120 ml ensure clear TID w/ meals. Will try magic cup BID w/ lunch and dinner for tolerance. Medications at Discharge Home Medications albuterol sulfate 90 mcg/actuation aerosol inhaler (ProAir HFA) 2 puff inhalation PRN PRN sob 06/18/22 atenolol 25 mg tablet 25 mg PO DAILY bp 06/18/22 buprenorphine HCl 8 mg sublingual tablet 8 mg sublingual BID Check with primary doctor 06/18/22 carbamazepine 100 mg/5 mL oral suspension 100 mg PO BID mood 06/18/22 fluticasone fur. 200 mcg-umeclid 62.5 mcg-vilant 25 mcg inhalat.powder (Trelegy Ellipta) 1 inh inhalation BID SOB 06/18/22 ipratropium 0.5 mg-albuterol 3 mg (2.5 mg base)/3 mL nebulization soln 3 ml inhalation Q4H PRN PRN sob 06/18/22 [id number]-apagrpfy-elqjljt 24,000-76,000-120,000 unit capsule,delayed rel (Creon) 3 cap PO TID stomach 06/18/22 lisinopril 10 mg-hydrochlorothiazide 12.5 mg tablet 1 tab PO DAILY bp 06/18/22 loperamide 2 mg capsule 2 mg PO TID diarrhea 06/18/22 meloxicam 15 mg tablet 15 mg PO DAILY pain 06/18/22 omeprazole 20 mg capsule,delayed release 20 mg PO DAILY gerd 06/18/22 ondansetron 8 mg disintegrating tablet 8 mg translingual Q8H PRN PRN Nausea 06/18/22 risperidone 0.5 mg tablet 0.5 mg PO QHS mood 06/18/22 clindamycin HCl 150 mg capsule 300 mg PO 4X/DAY 7 days #56 caps 06/21/22 Hospital Course Summary of Care Provided Minutes Spent on Discharge: 35 Physical Exam Narrative GENERAL: cooperative HEENT: Atraumatic; normocephalic EYES; Anicteric, Normal Conjunctiva NECK; supple, normal thyroid, RESPIRATORY: Diminished to auscultation CARDIOVASCULAR: Regular S1 S2, GI: soft, normoactive bowel sounds, : No Renal angle tenderness; EXTREMITIES: No edema, no clubbing, MUSCULOSKELETAL: no muscle wasting NEURO: Awake; no lateralizing signs. SKIN: No Rash PSYCH; Flat affect Medical Records Data Medical Nutrition Assessment Dietitian: Malnutrition Criteria Met Start: 06/19/22 12:17 Freq: Status: Active Protocol: Document 06/19/22 12:18 RMA (Rec: 06/19/22 12:18 RMA [id number]) Nutrition Malnutrition Evidence of Malnutrition Exists Yes Malnutrition (severe): Chronic,Social/Behavioral/ Environmental Evidenced By Suboptimal Energy Intake ( Severe),Weight Loss (Severe), Physical Changes (Severe) Clinical Problem Chronic Disease or Condition Related Malnutrition Etiology Severe protein-calorie malnutrition in the context of social circumstance/chronic drug abuse related to inadequate oral intake Signs/Symptoms as evidenced by 12% weight loss x past 6-12 months, BMI 18.0, oral intake meeting less than 50% estimated nutrition needs x past 1-3 months, NFPE exhibits severe muscle/fat wasting in the face, clavicle, arms and legs Status Active Problem Recommendation Dietitian Recommendations/Changes Continue cardiac diet as ordered due to chronic pancreatitis/HTN. Will add 120ml ensure plus high protein TID w/ medpass. Will add 120 ml ensure clear TID w/ meals. Will try magic cup BID w/ lunch and dinner for tolerance . Weight / BMI Weight Weight: 60.328 kg Body Mass Index (BMI) 18.0 ABG / Lab / Microbiology Data Result Diagrams: 06/18/22 16:07 06/18/22 15:00 D/C Instructions Discharge Diet: No restrictions Discharge Activity: Return to Normal Activity Call your doctor if you observe: Fever of 101 or Higher, Shortness of breath, Fainting spells and Chest pain Meaningful Use Info Meaningful Use Diagnoses (Choose all that apply): None applicable Discharge Plan Admission Admit Date/Time: 06/18/22 15:07 Attending Provider: Marco Amanda Primary Care Provider: ABEL GRACE Consulting Providers: Eden Mtz Discharge Orders/Prescriptions Prescriptions: New clindamycin HCl 150 mg Capsule 300 mg PO 4X/DAY 7 Days Qty: 56 0RF Continued ipratropium-albuterol 0.5 mg-3 mg(2.5 mg base)/3 mL solution for nebulization 3 ml inhalation Q4H PRN PRN (Reason: sob) Label Comments: INHALE ONE VIAL (3ML) BY NEBULIZATION EVERY 4-6HRS NEEDED -ICD10 CODE J44.1 loperamide 2 mg capsule 2 mg PO TID Label Comments: TAKE 1 CAPSULE BY MOUTH 3 TIMES A DAY NEEDED meloxicam 15 mg tablet 15 mg PO DAILY Label Comments: TAKE 1 TABLET BY MOUTH EVERY DAY atenolol 25 mg tablet 25 mg PO DAILY Label Comments: TAKE 1 TABLET BY MOUTH EVERY DAY ondansetron 8 mg tablet,disintegrating 8 mg translingual Q8H PRN PRN (Reason: Nausea) Label Comments: DISSOLVE ONE TABLET UNDER TONGUE EVERY 8 HOURS NEEDED omeprazole 20 mg capsule,delayed release(DR/EC) 20 mg PO DAILY Label Comments: TAKE 1 CAPSULE BY MOUTH EVERY DAY carbamazepine 100 mg/5 mL suspension 100 mg PO BID Label Comments: TAKE 10 MLS BY MOUTH TWICE A DAY lisinopril-hydrochlorothiazide 10-12.5 mg tablet 1 tab PO DAILY Label Comments: TAKE 1 TABLET BY MOUTH EVERY DAY albuterol sulfate [ProAir HFA] 90 mcg/actuation HFA aerosol inhaler 2 puff INHALATION PRN PRN (Reason: sob) risperidone 0.5 mg tablet 0.5 mg PO QHS buprenorphine HCl 8 mg tablet, sublingual 8 mg SUBLINGUAL BID Label Comments: DISSOLVE 1 TABLET UNDER THE TONGUE TWICE A DAY Trelegy Ellipta 200-62.5-25 mcg blister with device 1 inh INHALATION BID Creon 24,000-76,000 -120,000 unit Capsule,Delayed Release(Dr/Ec) 3 cap PO TID Rx Instructions: administer with meals and/or snacks Referrals / Follow Up: ABEL CRAWLEY [Other] ABEL GRACE [Other] Disposition Disposition (needs filled in before D/C Order can be placed): Home, Self Care Charges/Coding Visit Charges Inpatient E&M: 87156 Disch Hosp
[2022-06-21 10:18] VITALS: BP 119/73; PULSE 64; RESP 18; TEMP 36.6; O2SAT 96
--- NOTE | 2022-06-21 14:10 | CASEMGMT ---
Social Work Pt was not sure what number to call to set up transportation through her insurance. She does not have a copy of her insurance card. SW printed out pt's insurance card and brought it in to her, pointed out the number she needs to call to set up transportation. YECENIA Pineda
== END 2022-06-21 14:40 | disposition home or self-care (01) ==
LOC: ED 14:57 → MS3 15:40
PROVIDERS: Admitting Provider Student in an Organized Health Care Education/Training Program; Emergency Provider Emergency Medicine; Visit Provider Internal Medicine
DX: F11.23 Opioid dependence with withdrawal (principal); E43 Unspecified severe protein-calorie malnutrition; J44.9 Chronic obstructive pulmonary disease, unspecified; F31.9 Bipolar disorder, unspecified; K86.1 Other chronic pancreatitis; F17.210 Nicotine dependence, cigarettes, uncomplicated; K02.9 Dental caries, unspecified; I10 Essential (primary) hypertension; K04.7 Periapical abscess without sinus; Z68.1 Body mass index [BMI] 19.9 or less, adult; Z79.899 Other long term (current) drug therapy
CPT/HCPCS: 36415; 80053; 80307; 82077; 84703; 85025; 94640; 97802; 99283; H0012